=== PATIENT | male | born 2000 | race African-American/Black ===

== ENCOUNTER 2024-02-22 06:55 | Emergency (ER) | payer OTHER ==
[~2024-02-22] VITALS: Ht 180.3 cm; Wt 70.5 kg
[2024-02-22 06:56] VITALS: TEMP 98.5
[2024-02-22] MEDS: IBUPROFEN 600 MG TABLET PO ONE (07:41)
[2024-02-22] MEDS: BACITRACIN 0.9 GM PACKET OINTMENT TP ONE (07:41)
[2024-02-22 08:23] VITALS: BP 122/66; PULSE 79; RESP 16
[2024-02-22] MEDS ORDERED: IBUP-1554 PO (08:42)
== END 2024-02-22 09:00 | disposition home or self-care (01) ==
LOC: EMS 06:58
DX: S80.12XA Contusion of left lower leg, initial encounter (principal); S09.90XA Unspecified injury of head, initial encounter; V28.01XA Electric (assisted) bicycle driver injured in noncollision transport accident in nontraffic accident, initial encounter; Y93.89 Activity, other specified; Y92.89 Other specified places as the place of occurrence of the external cause; Y99.8 Other external cause status
CPT/HCPCS: 99283